=== PATIENT | male | born 1980 | race Caucasian/White ===

== ENCOUNTER 2017-06-20 09:45 | Emergency (ER) | payer BC | END 2017-06-20 11:18 | disposition home or self-care (01) | LOC: D.ER 09:45 | DX: S61.412A Laceration without foreign body of left hand, initial encounter (principal); W26.0XXA Contact with knife, initial encounter; Y93.89 Activity, other specified; Y92.019 Unspecified place in single-family (private) house as the place of occurrence of the external cause ==